=== PATIENT | female | born 1950 | race Caucasian/White ===

== ENCOUNTER 2018-09-15 14:40 | Observation (INO) | payer MEDICARE, MEDICAID ==
--- NOTE | 2018-09-15 15:37 | ED ---
Neurological HPI - HPI Summary HPI Summary: A 67 y/o female accompanied by a friend brought in by ambulance presents to ED c /o dizziness. Currently, the patient stated that she is not feeling like herself. In the ED room, the patient has a pulse of 60 BPM, O2 saturation of 99% , and blood pressure of 112/60. As per triage, "at about 1300 patient had an episode of virtigo after sitting up at the edge of the bed. Patient used manuvers taught to her to help cease the virtigo but symptoms did not adal". According to the patient, she started feeling dizzy today around 1300. Patient denies any weakness, numbness, but does have nausea. Additionally denies any CP or SOB. She stated that she was laying on her bed and watching TV for about an hour when she was hit with the dizziness. Her aid noted that the patient was slightly disoriented and was confused as well until the paramedics came. The patient was also diaphoretic during episode. Patient has a history of vertigo ( a couple years ago she had a episode), she thinks it is what she experienced today. Whenever she moves her head, she feels dizzy. No history of strokes. No current medications. Patient is a asthmatic. - History of Current Complaint Chief Complaint: EDDizziness Stated Complaint: DIZZINESS Time Seen by Provider: 09/15/18 15:14 Hx Obtained From: Patient Onset/Duration: Sudden Onset, Started hours ago Timing: Intermittent Episodes Lasting: Current Severity: None Number of Seizures: 0 Pain Intensity: 0 Pain Scale Used: 0-10 Numeric Character: Dizzy Syncope Timin Number of Episodes: 0 Aggravating: Nothing Alleviating: Nothing Associated Signs and Symptoms: Positive: Confusion - Allergy/Home Medications Allergies/Adverse Reactions: Allergies Allergy/AdvReac Type Severity Reaction Status Date / Time sucralose Allergy Severe See Comment Verified 09/15/18 14:58 [From Splenda (sucralose)] Sulfa (Sulfonamide Allergy Intermediate Rash Verified 09/15/18 14:58 Antibiotics) epinephrine Allergy Mild See Comment Verified 09/15/18 16:41 Iodinated Contrast- Oral and Allergy Unknown Unknown Verified 09/15/18 14:59 IV Dye Reaction Details Home Medications: Home Medications Albuterol inh POWDER (NF) [Proair Respiclick] 2 puff INH Q4H PRN 09/15/18 [ History Confirmed 09/15/18] Bismuth Subsalicylate [Pepto-Bismol] 15 ml PO Q8H PRN 09/15/18 [History Confirmed 09/15/18] Cod Liver Oil 1 cap PO DAILY 09/15/18 [History Confirmed 09/15/18] Ibuprofen 1 - 3 tab PO Q6H PRN 09/15/18 [History Confirmed 09/15/18] L.acidoph,Paracasei, B.lactis [Probiotic] 1 cap PO DAILY 09/15/18 [History Confirmed 09/15/18] Loratadine 5 mg PO DAILY PRN 09/15/18 [History Confirmed 09/15/18] Magnesium Citrate 1 tab PO DAILY 09/15/18 [History Confirmed 09/15/18] Multivitamins/Minerals TAB* 1 tab PO DAILY 09/15/18 [History Confirmed 09/15/18] Oxymetazoline HCl [Nasal [place]] 1 spray BOTH NARES BID PRN 09/15/18 [History Confirmed 09/15/18] Vitamin D3/Vitamin K2 (Mk4) [K2 Plus D3 Tablet] 1 tab PO DAILY 09/15/18 [ History Confirmed 09/15/18] PMH/Surg Hx/FS Hx/Imm Hx Endocrine/Hematology History: Denies: Hx Diabetes Cardiovascular History: Denies: Hx Hypertension, Hx Pacemaker/ICD History: Denies: Hx Renal Disease Sensory History: Denies: Hx Hearing Aid Psychiatric History: Denies: Hx Panic Disorder - Cancer History Hx Chemotherapy: No Hx Radiation Therapy: No - Surgical History Surgery Procedure, Year, and Place: BREAST CYSTS,lateral sides of both breast. TONSILECTOMY. UMBILICUS HERNIA. APPENDECTOMY W/ EXPLORITORY. TUBAL LIGATION. OPEN CHOLECYSTECTOMY. HENRIA REPAIR NEAR APPENDECTOMY SURG Infectious Disease History: No Infectious Disease History: Denies: Traveled Outside the [place] in Last 30 Days - Family History Known Family History: Negative: Blood Disorder - Social History Alcohol Use: None Substance Use Type: Reports: None Smoking Status (MU): Never Smoked Tobacco Review of Systems Positive: Skin Diaphoresis. Negative: Fever Negative: Chest Pain Negative: Shortness Of Breath Positive: Nausea Neurological: Other - POSITIVE: CONFUSION, DIZZINESS Negative: Weakness, Numbness All Other Systems Reviewed And Are Negative: Yes Physical Exam - Summary Physical Exam Summary: Appearance: Well appearing, no pain distress Skin: warm, dry, reflects adequate perfusion Head/face: normal Eyes: EOMI, STEPH ENT: normal Neck: supple, non-tender Respiratory: CTA, breath sounds present Cardiovascular: RRR, pulses symmetrical Abdomen: non-tender, soft Musculoskeletal: normal, strength/ROM intact Neuro: sensory motor intact, A&Ox3, confusion for a few minutes GCS: 15 Triage Information Reviewed: Yes Vital Signs On Initial Exam: Initial Vitals Pulse Resp Pulse Ox 59 15 99 09/15/18 14:49 09/15/18 14:49 09/15/18 14:49 Vital Signs Reviewed: Yes - [place] Coma Scale Best Eye Response: 4 - Spontaneous Best Motor Response: 6 - Obeys Commands Best Verbal Response: 5 - Oriented Coma Scale Total: 15 Diagnostics - Vital Signs Vital Signs Temp Pulse Resp BP Pulse Ox 09/15/18 15:00 62 14 100 09/15/18 14:51 64 15 99 09/15/18 14:50 98.3 F 64 16 128/47 100 09/15/18 14:49 59 15 99 - Laboratory Result Diagrams: 09/15/18 15:44 09/15/18 15:44 Lab Statement: Any lab studies that have been ordered have been reviewed, and results considered in the medical decision making process. - Radiology CXR Radiology Interpretation Completed By: Radiologist Summary of Radiographic Findings: NO EVIDENCE FOR ACUTE DISEASE. ED PHYSICIAN REVIEWED THIS RADIOLOGY REPORT. - CT BRAIN CT CT Interpretation Completed By: Radiologist Summary of CT Findings: NO EVIDENCE FOR ACUTE INTRACRANIAL ABNORMALITY. ED PHYSICIAN REVIEWED THIS RADIOLOGY REPORT. - EKG 1655 Cardiac Rate: Bradycardia - 55 BPM EKG Rhythm: Sinus Bradycardia - 55 BPM Summary of EKG Findings: No acute changes. 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 Correctly Best Gaze (Only Horizontal Eye Movement): Normal Visual Field Testing: No Visual Loss Facial Paresis-Pt to Smile & Close Eyes or Grimace Symmetry: Normal/Symmetrical Motor Function - Right Arm: No Drift-Holds 10 Seconds Motor Function - Left Arm: No Drift-Holds 10 Seconds Motor Function - Right Leg: No Drift-Holds 10 Seconds Motor Function - Left Leg: No Drift-Holds 10 Seconds Limb Ataxia-Must be out of Proportion to Weakness Present: Absent Sensory (Use Pinprick to Test Arms/Legs/Trunk/Face): Normal Best Language (Describe Picture, Name Items): No Aphasia Dysarthria (Read Several Words): Normal Extinction and Inattention: No Abnormality Total Score: 0 Course/Dx - Course Course Of Treatment: A 67 y/o female accompanied by a friend brought in by ambulance presents to ED c/o dizziness. Currently, the patient stated that she is not feeling like herself. In the ED room, the patient has a pulse of 60 BPM, O2 saturation of 99%, and blood pressure of 112/60. According to the patient, she started feeling dizzy today around 1300. Patient denies any weakness, numbness, but does have nausea. Additionally denies any CP or SOB. She stated that she was lying on her bed and watching TV for about an hour when she was hit with the dizziness. Her aid noted that the patient was slightly disoriented and was confused as well until the paramedics came. The patient was also diaphoretic during episode. Patient has a history of vertigo (a couple years ago she had an episode), she thinks it is what she experienced today. Whenever she moves her head, she feels dizzy. No history of strokes. No current medications. Patient is an asthmatic. Physical examination finding significant for confusion for a few minutes. NIH: 0. A CXR revealed no evidence for acute disease. A Brain CT revealed no evidence for acute intracranial abnormality. GCS : 15. An EKG revealed sinus bradycardia at a rate of 55 BPM, no acute changes. Hematology, Chemistry, and urinalysis screens were done. No significant laboratory abnormalities were found. In the ED course, the patient received no medications. Patient care was discussed with neurologist, Dr. Ramos, who accepts patient for admission. Patient will be admitted with a diagnosis of TIA. Patient is agreeable with this plan. - Differential Dx Differential Diagnoses Neuro: Positive: Benign Paroxysmal Positional Vertigo, Dysrhythmia, Labyrinthitis, Transient Ischemic Attack - Diagnoses Provider Diagnoses: TIA (transient ischemic attack) - Physician Notifications Discussed Care Of Patient With: Daniel Ramos Time Discussed With Above Provider: 16:50 Instructed by Provider To: Other - Accepts patient for admission. - Critical Care Time Critical Care Time: 30-74 min Discharge - Sign-Out/Discharge Documenting (check all that apply): Patient Departure - ADMIT, Sign-Out Patient - NANCY Signing out patient TO: Daniel Ramos Receiving patient FROM: Alton Garsia - Discharge Plan Condition: Stable Disposition: ADMITTED TO [facility] Referrals: Yolanda Alvarez MD [Primary Care Provider] - - Billing Disposition and Condition Condition: STABLE Disposition: Admitted to [facility] - Attestation Statements Document Initiated by Aishaibe: Yes Documenting Scribe: Soto Palmer Provider For Whom Brandon is Documenting (Include Credential): Alton Garsia MD Scribe Attestation: Soto Sosa, scribed for Alton Garsia MD on 09/15/18 at 1705. Scribe Documentation Reviewed: Yes Provider Attestation: The documentation as recorded by the Soto king accurately reflects the service I personally performed and the decisions made by , Alton Garsia MD Status of Scribe Document: Viewed
[2018-09-15 16:04] LABS: ABS Basophils 0 10^3/ul (0-0.2); ABS Eosinophils 0 10^3/ul (0-0.6); ABS Lymphocytes 0.8 10^3/ul (1.0-4.8); ABS Monocytes 0.4 10^3/ul (0-0.8); ABS Nucleated RBC 0 10^3/ul; Eosinophil % 0.9 %; Hematocrit 41 % (35-47); Hemoglobin 13.9 g/dl (12.0-16.0); Lymphocyte % 15.8 %; Mean Corpuscular HGB Conc 34 g/dl (31-36); Mean Corpuscular Hemoglobin 31 pg (27-31); Mean Corpuscular Volume 92 fL (80-97); Mean Platelet Volume 9.6 fL (7.4-10.4); Nucleated Red Blood Cells % 0.1; Platelet Count 172 10^3/ul (150-450); Red Blood Count 4.47 10^6/ul (4.00-5.40); Red Cell Distribution Width 14 % (10.5-15); White Blood Count 5.3 10^3/ul (3.5-10.8)
[2018-09-15 16:19] LABS: Albumin 4.1 g/dL (3.2-5.2); Albumin/Globulin Ratio 1.8 (1-3); Calcium 9.3 mg/dL (8.6-10.3); EGFR Non-African American 51.6 (>60); Globulin 2.3 g/dL (2-4); Potassium 4.3 mmol/L (3.5-5.0); Total Bilirubin 0.3 mg/dL (0.2-1.0); Total Protein 6.4 g/dL (6.4-8.9)
[2018-09-15 16:21] LABS: Activated Partial Thrombo Time 31.3 seconds (26.0-36.3); INR 0.85 (0.77-1.02)
[2018-09-15 16:39] LABS: Urine Appearance Cloudy; Urine Bilirubin Negative (Negative); Urine Blood Negative (Negative); Urine Color Yellow; Urine Glucose Negative (Negative); Urine Ketones Negative (Negative); Urine Nitrite Negative (Negative); Urine Protein Negative (Negative); Urine Urobilinogen Negative (Negative)
[2018-09-15] MEDS ORDERED: Albuterol HFA INHALER* 8 gm MDI INH PRN (17:32)
[2018-09-15] MEDS ORDERED: Cetirizine* 10 MG TAB PO PRN (17:32)
[2018-09-15] MEDS ORDERED: Bismuth Subsalicylate* 524 MG/30 ML BTL PO PRN (17:32)
[2018-09-15] MEDS ORDERED: Meclizine TAB* 12.5 MG PO PRN (17:37)
[2018-09-15 18:36] LABS: Prolactin 11.8 ng/mL (1.0-25.0)
[2018-09-15 18:43] LABS: Vitamin D Total 25(OH) 105.2 ng/mL (20-50)
--- NOTE | 2018-09-15 20:25 | HP ---
ADMITTING HISTORY AND PHYSICAL: DATE OF ADMISSION: 09/15/18 CHIEF COMPLAINT: Dizziness and confusion. HISTORY OF PRESENT ILLNESS: The patient is a 67-year-old lady with no documented significant past medical history other than BPPV, asthma and GERD , who presented with the above chief complaint. She mentions that she had her first bout of BPPV and was diagnosed for it about 2 years ago, but this time the quality of her vertigo and its severity has changed. More specifically, she mentioned that she was in her usual state of health until 2 days prior to admission where she complained that she has had some sore throat. A few hours prior to admission while lying down watching TV for an hour, she felt a bit off balance. She then tried to get up to see how her balance would be if she walks , but she mentions that she felt unsteady in her gait and suddenly noticed reccurence of vertigo. She felt that her vertigo somewhat improved after performing an Chriss maneuver at least once or twice, but this time, however, her symptoms were accompanied by nausea and diaphoresis, which she mentions as she has not experienced 2 years ago when she was first diagnosed with BPPV. She mentions that this only lasted for about 5 minutes until she came back to normal. It was also noted that her visiting nurse thought that she was a bit confused at the time that she was presenting with her symptoms. PAST MEDICAL HISTORY: BPPV, GERD with hiatal hernia, asthma. PAST SURGICAL HISTORY: Status post umbilical hernia repair in 1950, status post tonsillectomy in 2, exploratory appendectomy in 1964, wisdom teeth removal in 1972, tubal ligation in 1973, cholecystectomy in 1987, status post lumpectomy for breast fibrosis, status post groin hernia repair, status post right great toe surgery. ALLERGIES: To SULFA and SPLENDA. FAMILY HISTORY: Her mother had breast cancer, DVT, hypercholesterolemia, and CVA when she was 78 years old. Two of her sisters also were diagnosed with vertigo. Another sister was diagnosed with hypothyroidism. SOCIAL HISTORY: She denies any history of IV drug use, alcohol abuse, or illicit drug use. She lives currently by herself. She has 2 children, who live close by in the area about 6 to 10 miles. REVIEW OF SYSTEMS: Headaches, vertigo, and dizziness as described above as explained by the patient along with nausea. Currently, no more nausea. Denies any fevers, chills, abdominal pain, diarrhea, constipation. She does have some chronic back pain for which she does not want any imaging study on, although this was offered, she declined at this time. She mentions that she is holistic when it comes to her health and wants to avoid as much diagnostic tests and medications as possible and hence we will defer. PHYSICAL EXAMINATION GENERAL APPEARANCE: The patient is awake, alert, and oriented x3, not in acute distress. VITAL SIGNS: Reveal the most recent vital signs of record with blood pressure of 124/68, 60 beats per minute heart rate, respiratory rate of 18, saturating at 99% on room air. HEENT: Normocephalic, atraumatic. PERRLA. Extraocular muscles intact. Negative for icterus. Moist oral mucosa. Negative throat erythema. NECK: Soft, supple with no cervical lymphadenopathy, no JVD. CHEST: Clear to auscultation bilaterally. Good air entry. No wheezes, rales, or rhonchi. HEART: S1, S2 within normal limits. Regular rate and rhythm. No murmurs, rubs , or gallops. ABDOMEN: Soft, nondistended, nontender. Normoactive bowel sounds x4 quadrants. EXTREMITIES: No cyanosis, clubbing, or edema. PSYCHIATRIC: No active psychosis, depression, suicidal or homicidal ideation. SKIN: Warm to touch. DIAGNOSTIC STUDIES/LAB DATA: Most recent and pertinent laboratories drawn on 09/15/18 show CBC with normal WBC, H and H and platelet count. CMP shows sodium and potassium, BUN and creatinine were found to be normal, creatinine slightly elevated at 1.06. LFTs were found to be normal. Urinalysis shows no ketones and no leukocyte esterase. Chest x-ray shows no acute disease. Brain CT shows no acute disease or acute intracranial abnormalities. ASSESSMENT AND PLAN: The patient is a 67-year-old lady with history of gastroesophageal reflux disease with hiatal hernia, asthma and benign paroxysmal positional vertigo, admitted for confusion and dizziness, possibly due to benign paroxysmal positional vertigo, to consider/rule out transient ischemic attack versus small cerebrovascular accident. 1. Confusion and vertigo, likely secondary to benign paroxysmal positional vertigo that has possibly been exacerbated by a possible upper respiratory tract infection possibly causing mild vestibular neuritis causing an exacerbation of her benign paroxysmal positional vertigo. Her vertigo has since resolved with no focal neurological symptoms, although it is possible for her to have a small lacunar infarct as an isolated cranial nerve abnormality, although this has completely resolved, which is unusual for CVA. 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 We will also obtain orthostatic vital signs. Dr. Ramos has already been called by ER physician and hence we will defer with any further input. We will also check serum prolactin, TSH, and vitamin D levels given confusion along with B12. 2. Chronic left-sided back pain. The patient declines any offered evaluation such as renal ultrasound at this time and hence we will defer. This has been chronic. Continue with p.r.n. pain meds at this time. 3. Gastroesophageal reflux disease. Continue bismuth subsalicylate. The patient is very wary of taking any new medications at this time and hence we will continue watchful waiting. 4. DVT prophylaxis: We will place the patient on Lovenox subcu. 5. Disposition: For possible discharge in 1 to 2 days. [id number]/[facility] [facility] #: [id number] MARYANN
[2018-09-15] MEDS: Enoxaparin(*) 40 MG/0.4 ML SYR SUBCUT SCH (22:05)
[2018-09-16 05:45] LABS: ABS Basophils 0 10^3/ul (0-0.2); ABS Eosinophils 0.1 10^3/ul (0-0.6); ABS Lymphocytes 1.5 10^3/ul (1.0-4.8); ABS Monocytes 0.4 10^3/ul (0-0.8); ABS Neutrophils 2.1 10^3/ul (1.5-7.7); ABS Nucleated RBC 0 10^3/ul; Eosinophil % 3.2 %; Hematocrit 40 % (35-47); Hemoglobin 13.4 g/dl (12.0-16.0); Lymphocyte % 35.7 %; Mean Corpuscular HGB Conc 34 g/dl (31-36); Mean Corpuscular Hemoglobin 31 pg (27-31); Mean Corpuscular Volume 92 fL (80-97); Mean Platelet Volume 9.4 fL (7.4-10.4); Nucleated Red Blood Cells % 0.6; Platelet Count 162 10^3/ul (150-450); Red Blood Count 4.32 10^6/ul (4.00-5.40); Red Cell Distribution Width 14 % (10.5-15); White Blood Count 4.1 10^3/ul (3.5-10.8)
[2018-09-16 06:06] LABS: Albumin 3.6 g/dL (3.2-5.2); Albumin/Globulin Ratio 1.8 (1-3); BUN/Creatinine Ratio 20.5 (8-20); Calcium 8.9 mg/dL (8.6-10.3); EGFR Non-African American 63.9 (>60); HDL Cholesterol 58.1 mg/dL; Magnesium 2.1 mg/dL (1.9-2.7); Phosphorus 3.7 mg/dL (2.5-5.0); Potassium 4.1 mmol/L (3.5-5.0); Total Bilirubin 0.4 mg/dL (0.2-1.0); Total Protein 5.6 g/dL (6.4-8.9)
[2018-09-16 06:32] LABS: TSH (Thyroid Stimulating Horm) 2.07 mcIU/mL (0.34-5.60)
[2018-09-16 17:25] VITALS: BP 107/54
[2018-09-16] MEDS: Enoxaparin(*) 40 MG/0.4 ML SYR SUBCUT SCH (17:54)
--- NOTE | 2018-09-16 20:19 | CONS ---
NEUROLOGY CONSULTATION: DATE OF CONSULT: 09/16/18 LOCATION: She is an inpatient in room 434. REFERRING PROVIDER: Dr. Ballard. CHIEF COMPLAINT: Vertigo. HISTORY OF PRESENT ILLNESS: Ioana Laguerre is a 67-year-old woman, who yesterday developed true vertigo. She has had it before and so she performed some Chriss maneuvers on herself. She felt very diaphoretic and anxious and called her daughter. They decided to come to the emergency room. Two years ago, she was diagnosed with having BPPV and was taught vestibular therapy. She has not had episodes since. Today, she feels back to normal. There was no double vision, but there was oscillopsia when she had the vertigo. It lasted a minute or two at most, but probably less. She felt nauseous, but did not vomit. There was no double vision or change in hearing. PAST MEDICAL HISTORY: Notable for BPPV, asthma, hip arthritis requiring physical therapy. MEDICATIONS: At home, consist of: 1. Albuterol p.r.n. 2. Ibuprofen p.r.n. 3. Loratadine 5 mg p.o. q. day. 4. Vitamin D. 5. Magnesium citrate. ALLERGIES: She is allergic to SULFA DRUGS. REVIEW OF SYSTEMS: Notable for a sore throat, which was about 1 day 2 days before onset of vertigo. Other than that, she has been healthy. No recent head trauma. No recent change in medications. PHYSICAL EXAM: She is well nourished and well hydrated. She has been afebrile throughout her hospital stay. Blood pressure most recently 107/54, heart rate in the 50s and regular. Respiratory rate is 16 and oxygen saturation is 100% on room air. Neurological Exam: Pupils react equally from 3.5 down to 2 mm. Eye movements are normal without nystagmus. Visual sánchez are full. Facial musculature is symmetric. Palate and tongue appear normal and there is no dysarthria. Motor exam reveals normal muscle tone and antigravity strength in the limbs. Finger- to-nose maneuver and finger taps are normal bilaterally. Gehm-hq-moqv maneuver is normal bilaterally. Standard gait is normal. She can perform a decent tandem gait. Romberg sign is absent. She is alert and oriented and an excellent detailed historian with intact memory and fluent language. She has adequate attention, concentration, and fund of knowledge. Tolono-Hallpike maneuver was performed bilaterally and did not produce vertigo or nystagmus. DIAGNOSTIC STUDIES/LAB DATA: Includes a normal INR, normal chemistry profile other than nonfasting glucose of 149 when she came in down to 100 this morning. TSH normal at 2.07. Urinalysis is unremarkable. CBC is normal. MRI of the brain was reviewed and looks completely normal. It was interpreted by the radiologist as normal as well. Carotid ultrasound study was done, which revealed some atherosclerotic plaque in the carotid bulbs, but no significant stenosis. IMPRESSION AND PLAN: Impression is that of history of paroxysmal positional vertigo, which has since resolved. There is no evidence of cerebral ischemia. I think she can be discharged home. [id number]/[facility] #: [id number] MARYANN
--- NOTE | 2018-09-17 10:34 | DS ---
CC: Dr. Garsia; Dr. Ramos; Dr. Yolanda Alvarez DISCHARGE SUMMARY: DATE OF ADMISSION: DATE OF DISCHARGE: DISCHARGE DIAGNOSES: As follows: 1. Confusion and vertigo likely due to benign paroxysmal positional vertigo, possibly exacerbated by a mild form of vestibular neuritis due to an upper respiratory tract infection. 2. Chronic left-sided back pain. 3. Gastroesophageal reflux disease. DISCHARGE MEDICATIONS: As follows: 1. Albuterol 2 puffs inhalation q.4 p.r.n. 2. Bismuth subsalicylate 15 mL p.o. q.8 p.r.n. 3. Loratadine 5 mg p.o. daily p.r.n. 4. Cetirizine 10 mg p.o. daily p.r.n. 5. Meclizine 25 mg p.o. q.6 p.r.n. 6. Cod liver oil 1 cap p.o. daily. 7. Ibuprofen 1 to 3 tabs of 200 mg tabs p.o. q.6 p.r.n. 8. Probiotic capsules 1 cap p.o. daily. 9. Magnesium citrate 1 tablet p.o. daily. 10. Multivitamins 1 tablet p.o. daily. 11. Oxymetazoline 1 spray to both nares b.i.d., which is her home med. It was explained to her that she needs to follow the instructions, otherwise she might get a rebound sinusitis. 12. Vitamin D3/vitamin K2 one tablet p.o. daily. HISTORY OF PRESENT ILLNESS/HOSPITAL COURSE: The patient is a 67-year-old lady with no documented significant past medical history other than BPPV, asthma and GERD, who presented with dizziness and confusion. She mentioned that she was in her usual state of health until a few hours prior to admission and was diagnosed previously with BPPV about 2 years ago. Since her first bout, she has not had any recurrence until a few hours prior to admission when she was watching TV, while she was lying down that she felt "off balance" without any complaint of vertigo. She then started to get up to test herself and her symptoms and she once again felt out of balance and then suddenly developed vertigo and she experienced some diaphoresis as well as some nausea, which she mentioned that she has not experiencing before and was concerned of this and went to the ED for further evaluation. 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 She was admitted for observation and was worked up for a presyncopal episode and she had carotid Dopplers and a brain MRI, which were otherwise unremarkable for any acute issues as well as her brain CT on admission. She did have a 2D echo, however, she was informed that the results of this has not been read yet and that she will need to follow up with her PCP to discuss what it contains since she wants to leave and initially wanted to leave [place], but I informed her that Dr. Ramos wanted to talk to her and evaluate her in person prior to her leaving. She was seen at the end of the day and I am discharging her per her request and given most of her workup has been otherwise unremarkable. She had been advised to follow up and/or call her PCP within 3 days post discharge and she was once again reminded that her 2D echo results have not yet been released and to make sure that she discuss the results with her PCP. She was asked to follow with Dr. Ramos as per his instruction and to call his office to make/confirm an appointment. She was advised that if her symptoms resume or develop new ones or feel unwell for any reason to call her PCP first and if her PCP cannot entertain her due to scheduling issues alone, she was advised to call [facility] if the issue is nonemergent. She was advised to call my office regarding any questions, concerns, or further clarifications regarding her discharge plans and/or prescriptions and to take her medications as prescribed. REVIEW OF SYSTEMS: She denied any current headaches, dizziness, fevers, chills , nausea, vomiting, chest pain, shortness of breath, increased cough and/or sputum production, abdominal pain, diarrhea, constipation, pain and/or increased frequency on urination, myalgias, arthralgias, throat pain, or new skin lesions. The rest of the 14-point review of systems is otherwise unremarkable. PHYSICAL EXAMINATION: Shows the most recent vital signs of records with blood pressure of 107/54, 97.6 degrees Fahrenheit, 56 beats per minute heart rate, saturating at 100% at room air. General Appearance: The patient is awake, alert, and oriented x3, not in acute distress. HEENT: Normocephalic, atraumatic. PERRLA. Extraocular muscles intact. Negative for icterus. Moist oral mucosa. Negative throat erythema. Neck is soft, supple with no cervical lymphadenopathy. No JVD. Heart: S1, S2 within normal limits. Chest: Clear to auscultation bilaterally. Good air entry. No wheezes, rales, or rhonchi. Abdomen: Soft, nondistended, nontender. Normoactive bowel sounds x4 quadrants. Extremities: No cyanosis, clubbing, or edema. Psychiatric: No active psychosis, depression, suicidal or homicidal ideation. Skin is warm to touch. TIME SPENT: The total time spent evaluating the patient, reviewing pertinent data, and appropriate documentation is 65 minutes. [id number]/[facility] #: [id number] MTDD
--- NOTE | 2018-09-19 09:02 | ECHO ---
Patient: CHRISTOPHER BOWEN [facility] Rec#: [id number] : 1950 Date: 09/16/2018 Age: 67y Height: 163 cm / 64.2 in Weight: 82 kg / 180.7 lbs Sex: F BSA: 1.88 Room#: 434 Admit Date#: 09/15/2018 Type: Inpatient Referring: Clement Ballard Reading: Jose Carvajal MD Mushroom Laborer: Karly Ng RDCS CC: Yolanda Alvarez MD Transthoracic Echocardiogram Indication: Syncope BP: 114/60 HR: 61 Rhythm: NSR Findings History: Asthma, vertigo,pre-syncope. Technical Comments: The study quality is good. Completed at 1010. Left Ventricle: The left ventricular chamber size is normal. Global left ventricular wall motion and contractility are within normal limits. There is normal left ventricular systolic function. The estimated ejection fraction is 55-60%. There is no consistent Doppler evidence of clinically significant diastolic dysfunction. Left Atrium: The left atrial chamber size is normal. Right Ventricle: The right ventricular cavity size is normal. The right ventricular global systolic function is normal. Right Atrium: The right atrial cavity size is normal. Aortic Valve: The aortic valve is trileaflet. There is no evidence of aortic regurgitation. There is no evidence of aortic stenosis. Mitral Valve: The mitral valve leaflets are mildly thickened. There is no evidence of mitral regurgitation. There is no evidence of mitral stenosis. Tricuspid Valve: The tricuspid valve leaflets are normal. There is trace tricuspid regurgitation. Unable to estimate the right ventricular systolic pressure. There is no tricuspid stenosis. Pulmonic Valve: The pulmonic valve appears normal. There is no evidence of pulmonic regurgitation. There is no pulmonic stenosis. Pericardium: A pericardial fat pad is visualized. Aorta: There is no dilatation of the ascending aorta. There is no dilatation of the aortic arch. There is no dilation of the aortic root. Pulmonary Artery: The main pulmonary artery appears normal. Venous: The venous system is not well visualized. Summary: There was not any prior study for comparison. Conclusions There is normal left ventricular systolic function. The estimated ejection fraction is 55-60%. There is trace tricuspid regurgitation. Measurements Name Value Normal Range RVIDd (AP) 2D 3.1 cm (0.9 - 2.6) RVDdMajor (2D) 3.7 cm (2.2 - 4.4) RAd ISD 4CH 5.2 cm (3.4 - 4.9) RA (A4C)W 4.1 cm (2.9 - 4.6) IVSd (2D) 0.9 cm (0.6 - 1) LVPWd (2D) 0.8 cm (0.6 - 1) LVIDd (2D) 4.3 cm (3.6 - 5.4) LVIDs (2D) 3.1 cm - LV FS (2D) 38 % (25 - 45) Aortic Annulus 2 cm (1.4 - 2.6) Ao root diameter (2D) 2.9 cm (2.1 - 3.5) Ascending Ao 3.1 cm (2.1 - 3.4) Aortic arch 2.3 cm (1.8 - 3.4) LA dimension (AP) 2D 3.4 cm (2.3 - 3.8) LAd ISD 4CH 4.3 cm (2.9 - 5.3) LA ISD 4CH W 3.3 cm (2.5 - 4.5) Name Value Normal Range LA ESV SP 4CH (A/L) 13 ml - LA ESV SP 2CH (A/L) 21 ml - Name Value Normal Range MV E-wave Vmax 0.7 m/sec - MV deceleration time 271 msec - MV A-wave Vmax 0.8 m/sec - MV E:A ratio 0.9 ratio - LV septal e' Vmax 0.07 m/sec - LV lateral e' Vmax 0.14 m/sec - Name Value Normal Range AV Vmax 1.1 m/sec - AV VTI 25.5 cm - AV peak gradient 4 mmHg - AV mean gradient 2 mmHg - LVOT Vmax 1 m/sec - LVOT VTI 23 cm - LVOT peak gradient 4 mmHg - LVOT mean gradient 2 mmHg - Name Value Normal Range PV Vmax 0.7 m/sec - PV peak gradient 2 mmHg -
== END 2018-09-16 20:15 | disposition home or self-care (01) ==
LOC: ED 14:40 → MEDTELE 17:31
PROVIDERS: ADMIT Student in an Organized Health Care Education/Training Program; ATTEND Student in an Organized Health Care Education/Training Program
DX: R41.0 Disorientation, unspecified (principal); R42 Dizziness and giddiness; M54.9 Dorsalgia, unspecified; K21.9 Gastro-esophageal reflux disease without esophagitis; R11.0 Nausea; Z88.2 Allergy status to sulfonamides; Z87.19 Personal history of other diseases of the digestive system
CPT/HCPCS: 36415; 70450; 70551; 71045; 80053; 80061; 81003; 82306; 82607; 83735; 84100; 84146; 84443; 84484; 85025; 85610; 85730; 93005; 93306; 93880; 96372; 99284; A9270-GY; G0378; J1650